=== PATIENT | female | born 1950 | race Caucasian/White ===

== ENCOUNTER 2016-12-22 06:22 | Day surgery (SDC) | payer BC ==
[2016-12-16 20:34] LABS: BASOPHILS 0.7 %; BASOPHILS ABSOLUTE 0.03 10/3/uL (0.0-0.16); EOSINOPHILS 2.6 %; EOSINOPHILS ABSOLUTE 0.12 10/3/uL (0.0-0.53); HEMATOCRIT 39.8 % (36.0-48.0); HEMOGLOBIN 13.2 g/dL (12.0-16.0); LYMPHOCYTES 26.5 %; MANUAL DIFF NO %; MEAN CORPUS HGB CONC 33.2 g/dL (32.0-36.0); MEAN CORPUSCULAR HEMOGLOB 31.7 pg (26.0-34.0); MEAN CORPUSCULAR VOLUME 95.4 fL (80-100); MEAN PLATELET VOLUME 11.6 fL (9.2-13.0); MONOCYTES 10.4 %; MONOCYTES ABSOLUTE 0.47 10/3/uL (0.21-1.20); NEUTROPHILS 59.8 %; NEUTROPHILS ABSOLUTE 2.71 10/3/uL (2.02-8.40); PLATELET COUNT 103 10/3/uL (150-400); RBC DISTRIBUTION WIDTH 14.3 % (12.0-16.0); RED CELL COUNT 4.17 10/6/uL (4.0-5.6); WHITE BLOOD CELLS 4.5 10/3/uL (4.5-10.5)
[2016-12-16 21:00] LABS: ALBUMIN 3.6 G/DL (3.5-5.0); ALKALINE PHOSPHATASE 131 U/L (45-117); BUN (BLOOD UREA NITROGEN) 13 MG/DL (6-23); CALCIUM, SERUM 8.9 MG/DL (8.5-10.4); CHLORIDE, SERUM 109 MMOL/L (96-112); CO2 (CARBON DIOXIDE) 30 MMOL/L (24-34); CREATININE 0.55 MG/DL (0.55-1.02); DIRECT BILIRUBIN 0.3 MG/DL (0.0-0.4); GFR AFRICAN AMERICAN 113 ML/MIN (>=60); GFR NON AFRICAN AMERICAN 98 ML/MIN (>=60); GLUCOSE, SERUM 95 MG/DL (60-99); INDIRECT BILIRUBIN(NOT ORDER) 0.6 MG/DL (0.1-0.9); POTASSIUM, SERUM 4.8 MMOL/L (3.5-5.3); SGOT(AST) 66 U/L (5-40); SGPT(ALT) 55 U/L (5-65); SODIUM, SERUM 145 MMOL/L (135-148); TOTAL BILIRUBIN 0.9 MG/DL (0-1.2); TOTAL PROTEIN 7.2 G/DL (6.0-8.5)
--- NOTE | ~2016-12-22 | OP ---
Record Of Operation [facility] [address] [place]. [address] NAME: ABDIAS VITAL : 50 STATUS : REG [facility] [place] PAT#: [id number] AGE: 66 ADM/REG DATE : 12/22/16 MR#: [id number] REPORT SERV DATE: 12/22/16 DICTATED BY: DRISS PIERCE DATE: 12/22/16 REPORT STATUS : Draft TRANSCRIBED BY: MODL DATE: 12/22/16 DATE OF PROCEDURE: 12/22/2016 PREOPERATIVE DIAGNOSIS: Umbilical hernia. POSTOPERATIVE DIAGNOSES: 1. Umbilical hernia. 2. Severe cirrhosis with portal hypertension. OPERATION PERFORMED: 1. Diagnostic laparoscopy. 2. Aborted umbilical hernia repair. SURGEON: Driss Pierce M.D. PRINTING PLATE SETTER: Bipin Corrigan MD ESTIMATED BLOOD LOSS: Less than 5 mL. IV FLUIDS: Adequate. INDICATIONS FOR PROCEDURE: Ms. Vital is 66-year-old female, who has had a known umbilical hernia that has become progressively symptomatic and tender. She has requested repair. INTRAOPERATIVE FINDINGS: We entered the abdomen using an Optiview trocar. She had severe cirrhosis with portal hypertension and multiple preperitoneal vessels surrounding the umbilicus. We therefore aborted the repair of the hernia. DESCRIPTION OF OPERATION: After appropriate sedation, the patient was prepped and draped in proper sterile fashion. Skin and subcutaneous tissues in the left upper quadrant were infiltrated with local anesthesia. A 10 mm Optiview trocar used to enter the abdomen. The abdomen was insufflated to 15 mmHg. We visualized the intraabdominal contents. She had severe cirrhosis of the liver. There were multiple very large vessels entering the abdominal wall circumferentially around the umbilicus, as well as around the area of the incarcerated fat. At this point, I did not feel like we could safely take these down and our risk and benefit ratio was outweighed by her risk of bleeding, and prolonged anesthesia. At this point, we took several pictures of the abdominal wall, as well as her liver, and then at this point, we terminated the procedure. The abdomen was then desufflated. The trocars were removed under direct visualization. There was no evidence of bleeding from the abdominal wall. The skin was closed using 4-0 Monocryl suture. Dressings were applied. The patient was taken to recovery room in stable condition. AMBROCIO/MODL Record Of [place] [address] [address] NAME: ABDIAS VITAL : 50 STATUS : REG [facility] [place] PAT#: [id number] AGE: 66 ADM/REG DATE : 12/22/16 MR#: [id number] REPORT SERV DATE: 12/22/16 DICTATED BY: DRISS PIERCE DATE: 12/22/16 REPORT STATUS : Draft TRANSCRIBED BY: MODDeann DATE: 12/22/16 Driss Pierce M.D. / [id number] CC: Jonathan Smalls D.O.
[~2016-12-22 06:22] MED LIST: ASAB PO; AVAP150 PO; CALTRA600D PO; CLARIT10 PO; COREG3 PO; COZ50 PO; DETROLLA4 PO; ESTRACE VAGIN42.5 GM V; ESTROGEL TD; FLAGIV500 IV; FLONASE NAS; GARLIC PO; GLUCCHONDR PO; HYDROCHLOROT12.5 MG PO; IRON PO; LEVAQUIN750 MG PO; LEVOTHYROXIN112 MCG PO; LEVOTHYROXIN125 MCG PO; NASAL SPRAY; NORV5 PO; SINGULAIR1 PO; SYN1 PO; SYN125 PO; VASOTEC20 MG PO; VENTOLIN HFA INH; VITAMIN C; VITAMIN D31000 UNIT PO; VITE PO; [UNRECOGNIZED DRUG - OTHER]; [UNRECOGNIZED DRUG - OTHER] TOP
== END 2016-12-22 14:11 | disposition home or self-care (01) ==
LOC: SDC 06:22
PROVIDERS: Specialist
PROC: 0WQF4ZZ Repair Abdominal Wall, Percutaneous Endoscopic Approach (ICD-10-PCS; principal; 2016-12-22 08:15)
DX: K42.9 Umbilical hernia without obstruction or gangrene (principal); K74.60 Unspecified cirrhosis of liver; E66.01 Morbid (severe) obesity due to excess calories; K76.0 Fatty (change of) liver, not elsewhere classified; G47.33 Obstructive sleep apnea (adult) (pediatric); I10 Essential (primary) hypertension; Z90.710 Acquired absence of both cervix and uterus; Z79.899 Other long term (current) drug therapy; Z68.43 Body mass index [BMI] 50.0-59.9, adult
CPT/HCPCS: 36415; 80048; 80076; 85025; 87641; 93005; J0690; J2250; J2405; J2710; J3010